=== PATIENT | male | born 1970 | race Caucasian/White ===

== ENCOUNTER 2017-08-24 08:57 | Emergency (ER) | payer OTHER ==
[2017-08-24 09:12] VITALS: BP 154/96; PULSE 58; TEMP 97.3; BMI 32.3
[2017-08-24] MEDS ORDERED: predniSONE 20 MG TABLET (UD) PO ONE (09:57)
--- NOTE | 2017-08-24 10:08 | PDOC ---
Attending Attestation - HPI HPI: 08/24/17 10:14 Pt is a 47 yo M with a PMHx of HLD who presents to the ED with hives and throat swelling today. Patient ate a meal from [employer] 2 hours ago and suddenly developed hives. Patient took two Benadryls with minimal relief. Patient now complaining of throat swelling and presents to the ED for further evaluation. Allergies: Shrimp - Medical Decision Making 08/24/17 10:14 Documentation prepared by Mary Kate Ridlde, acting as medical device for Michaela Frances MD <Mary Kate Riddle - Last Filed: 08/24/17 10:14> - Resident Resident Name: Emanuel Charles - ED Attending Attestation I have performed the following: I have examined & evaluated the patient, The case was reviewed & discussed with the resident, I agree w/resident's findings & plan, Exceptions are as noted - Physicial Exam PE: GENERAL: Awake, alert, and fully oriented, in no acute distress HEAD: No signs of trauma EYES: PERRLA, EOMI, sclera anicteric, conjunctiva clear ENT: Auricles normal inspection, hearing grossly normal, nares patent, oropharynx clear without exudates. Moist mucosa. Uvula midline, no edema. Airway patent. NECK: Normal ROM, supple, no lymphadenopathy, JVD, or masses LUNGS: Breath sounds equal, clear to auscultation bilaterally. No wheezes, and no crackles HEART: Regular rate and rhythm, normal S1 and S2, no murmurs, rubs or gallops ABDOMEN: Soft, nontender, normoactive bowel sounds. No guarding, no rebound. No masses EXTREMITIES: Normal range of motion, no edema. No clubbing or cyanosis. No cords, erythema, or tenderness NEUROLOGICAL: Cranial nerves II through XII grossly intact. Normal speech, normal gait SKIN: Warm, Dry, normal turgor, no rashes. +Urticarial rash to B/L legs. - Medical Decision Making Pt with no signs of airway edema- no voice changes, no edema visualized. Will give prednisone (he took 2 tabs of benadryl prior to arrival), then will DC as he improves. <Michaela Frances - Last Filed: 08/24/17 10:18>
[2017-08-24] MEDS ORDERED: predniSONE 20 MG TABLET (UD) ONE (10:14)
--- NOTE | 2017-08-24 10:15 | PDOC ---
History of Present Illness - General Chief Complaint: Allergic Reaction Stated Complaint: RASH Time Seen by Provider: 08/24/17 09:21 - History of Present Illness Initial Comments: 08/24/17 10:21 Mr. Allen is a 47 yo male w/ no significant pmh who presents for evaluation of itchy rash since he woke up this morning. He reports he has had similar reactions in the past after eating shrimp but has had full allergen testing and was found to be only allergic to dogs. He denies any recent new soaps, lotions, fabric softeners, etc., and reports he has eaten no new foods recently. He took 2 benadryl pills before arrival. The patient denies chest pain, shortness of breath, headache and dizziness. Denies fever, chills, nausea, vomit, diarrhea and constipation. Denies dysuria, frequency, urgency and hematuria. Allergies: NKDA Past History - Past Medical History Allergies/Adverse Reactions: Allergies Allergy/AdvReac Type Severity Reaction Status Date / Time No Known Allergies Allergy Verified 08/24/17 09:10 Home Medications: Ambulatory Orders Atorvastatin Ca [Lipitor] 20 mg PO HS 12/30/15 Prednisone [Deltasone] 40 mg PO DAILY #6 tablet 08/24/17 COPD: No GI Disorders: Yes Hypercholesterolemia: Yes - Suicide/Smoking/Psychosocial Hx Smoking History: Never smoked Have you smoked in the past 12 months: No Hx Alcohol Use: No Drug/Substance Use Hx: No Substance Use Type: Alcohol Review of Systems - Review of Systems Comments:: 08/24/17 10:24 GENERAL/CONSTITUTIONAL: No fever or chills. No weakness. HEAD, EYES, EARS, NOSE AND THROAT: No change in vision. No ear pain or discharge. No sore throat. CARDIOVASCULAR: No chest pain or shortness of breath RESPIRATORY: No cough, wheezing, or hemoptysis. GASTROINTESTINAL: No nausea, vomiting, diarrhea or constipation. GENITOURINARY: No dysuria, frequency, or change in urination. MUSCULOSKELETAL: No joint or muscle swelling or pain. No neck or back pain. SKIN: +Itchy rash since he woke up this morning. NEUROLOGIC: No headache, vertigo, loss of consciousness, or change in strength/ sensation. ENDOCRINE: No increased thirst. No abnormal weight change HEMATOLOGIC/LYMPHATIC: No anemia, easy bleeding, or history of blood clots. ALLERGIC/IMMUNOLOGIC: No hives or skin allergy. *Physical Exam - Vital Signs Last Vital Signs Temp Pulse Resp BP Pulse Ox 97.3 F L 58 L 19 154/96 98 08/24/17 09:10 08/24/17 09:10 08/24/17 09:10 08/24/17 09:10 08/24/17 09:10 - Physical Exam Comments: 08/24/17 10:25 GENERAL: Awake, alert, and fully oriented, in no acute distress HEAD: No signs of trauma, normocephalic, atraumatic EYES: PERRLA, EOMI, sclera anicteric, conjunctiva clear ENT: Auricles normal inspection, hearing grossly normal, nares patent, oropharynx clear without exudates. Moist mucosa NECK: Normal ROM, supple, no lymphadenopathy, JVD, or masses LUNGS: No distress, speaks full sentences, clear to auscultation bilaterally HEART: Regular rate and rhythm, normal S1 and S2, no murmurs, rubs or gallops, peripheral pulses normal and equal bilaterally. ABDOMEN: Soft, nontender, normoactive bowel sounds. No guarding, no rebound. No masses EXTREMITIES: Normal inspection, Normal range of motion, no edema. No clubbing or cyanosis. NEUROLOGICAL: Cranial nerves II through XII grossly intact. Normal speech, normal gait, no focal sensorimotor deficits SKIN: +Bilateral rash noted to hands and upper thighs. Warm, Dry, normal turgor , no lesions noted. Medical Decision Making - Medical Decision Making 08/24/17 10:26 Mr. Allen is a 47 yo male w/ no pmh who presents for evaluation of itchy rash as described. Patient has already taken 50mg benadryl; 50mg prednisone ordered for further symptomatic relief. 08/24/17 10:58 Patient reporting resolution of itchiness and appears clinically well. Discharging w/ outpatient prednisone Rx for 3 days and to f/u with pcp. Discharging to home. *DC/Admit/Observation/Transfer Diagnosis at time of Disposition: Rash - Discharge Dispostion Disposition: HOME - Prescriptions Prescriptions: Prednisone [Deltasone] 40 mg PO DAILY #6 tablet - Referrals - Patient Instructions Printed Discharge Instructions: DI for Rash Additional Instructions: Please take all medications as proscribed. Follow-up with PCP next week for further evaluation. Return to ER if any increase in rash, itchiness, or difficulty breathing. - Post Discharge Activity
== END 2017-08-24 11:00 | disposition home or self-care (01) ==
LOC: JER 08:57 → JERFT 08:57 → JER 11:00
DX: R21 Rash and other nonspecific skin eruption (principal); Z91.09 Other allergy status, other than to drugs and biological substances
CPT/HCPCS: 99282-25